=== PATIENT | female | born 2000 | race African-American/Black ===

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

== ENCOUNTER 2022-06-21 12:19 | Inpatient (IN) ==
[2022-06-21] MEDS ORDERED: Al Hydrox/Mg Hydrox/Simet LIQ 30 ML UDC PO PRN (17:14)
[2022-06-21 21:30] LABS: ABS Eosinophils 0.1 10^3/ul (0-0.6); ABS Lymphocytes 2.7 10^3/ul (1.0-4.8); ABS Monocytes 0.7 10^3/ul (0-0.8); ABS Neutrophils 5.5 10^3/ul (1.5-7.7); Eosinophil % 0.7 %; Hematocrit 41 % (35-47); Hemoglobin 13.4 g/dL (12.0-16.0); Lymphocyte % 29.8 %; Mean Corpuscular HGB Conc 33 g/dL (31-36); Mean Corpuscular Hemoglobin 30 pg (27-31); Mean Corpuscular Volume 89 fL (80-97); Nucleated Red Blood Cells % 0.1; Platelet Count 304 10^3/uL (150-450); Red Blood Count 4.53 10^6 /uL (3.70-4.87); Red Cell Distribution Width 13 % (10-15); White Blood Count 8.9 10^3/uL (3.5-10.8)
[2022-06-21 22:18] LABS: ALT 10 U/L (7-52); AST 15 U/L (13-39); Acetaminophen < 15 mcg/mL; Albumin/Globulin Ratio 1.4 (1-3); Alcohol, S < 13 mg/dL (<13); Alkaline Phosphatase 47 U/L (35-149); Anion Gap 11 mmol/L (2-11); Blood Urea Nitrogen 11 mg/dL (6-24); CO2 Carbon Dioxide 23 mmol/L (22-32); Calcium 10.1 mg/dL (8.6-10.3); Chloride 104 mmol/L (101-111); Globulin 3.5 g/dL (2-4); Glucose 87 mg/dL (70-100); Potassium 3.3 mmol/L (3.5-5.0); Salicylate < 2.50 mg/dL (<30); Sodium 138 mmol/L (135-145); Total Protein 8.5 g/dL (6.4-8.9); eGFR CKD-EPI 98.4 (>60)
[2022-06-21 22:23] LABS: HCG Pregnancy < 0.60 mIU/mL
[2022-06-21 22:32] LABS: TSH Ultra Thyroid Stim Horm 1.33 mcIU/mL (0.34-5.60)
[2022-06-22 07:04] LABS: HDL Cholesterol 57.7 mg/dL
[2022-06-22] MEDS ORDERED: [UNRECOGNIZED DRUG - OTHER] PO SCH (09:00)
[2022-06-22] MEDS ORDERED: hydrOXYzine LIQ ORALSYR 2 MG/ML PO PRN (14:33)
[2022-06-23] MEDS ORDERED: LEVONORGESTREL ETH ESTRAD PO SCH (09:00)
[2022-06-23] MEDS: Escitalopram SOLN ORALSYR 5 MG/5 ML PO SCH (09:25)
[2022-06-23 15:02] LABS: Urine Appearance Clear; Urine Color Yellow; Urine pH 5.5 (5.0-9.0)
[2022-06-23 15:03] LABS: Urine Bilirubin Negative (Negative); Urine Blood Trace (Lysed) (Negative); Urine Glucose Negative (Negative); Urine Ketones Negative (Negative); Urine Nitrite Negative (Negative); Urine Protein Negative (Negative); Urine Urobilinogen 0.2 (Negative) (Negative)
[2022-06-23 15:07] LABS: Urine Bacteria Absent (Absent); Urine Red Blood Cell Trace(0-2/hpf) (Absent); Urine White Blood Cell Absent (Absent)
[2022-06-23 15:09] LABS: Urine Specific Gravity 1.004 (1.002-1.030)
[2022-06-23 15:13] LABS: Urine Benzodiazepine Screen None Detected (None Detect); Urine Cannabinoids Screen Presumptive Positive (None Detect); Urine Opiates Screen None Detected (None Detect)
[2022-06-24 08:10] VITALS: BP 127/74
[2022-06-24] MEDS: Escitalopram SOLN ORALSYR 5 MG/5 ML PO SCH (08:46)
== END 2022-06-24 16:07 | disposition home or self-care (01) | DRG 753 ==
LOC: ED 12:19 → EDHOLD 17:14 → BSU 20:05
PROVIDERS: ADMIT Psychiatry & Neurology Psychiatry; ATTEND Psychiatry & Neurology Psychiatry